=== PATIENT | male | born 1955 | race Caucasian/White ===

== ENCOUNTER 2017-01-19 20:20 | Day surgery (SDC) | payer BC ==
[2017-01-19] MEDS ORDERED: Ondansetron 4 MG/2 ML SDV IVPUSH PRN ×2 (20:37→23:37)
[2017-01-19] MEDS ORDERED: Sodium Chloride 0.9% 1,000 ML IV ONE (20:37)
--- NOTE | 2017-01-19 20:46 | EDM.PDOC ---
ED HPI GENERAL MEDICAL PROBLEM - General Chief Complaint: Abdominal Pain Stated Complaint: LOWER RIGHT ABDOMINAL PAIN Time Seen by Provider: 01/19/17 20:39 Source of Information: Reports: Patient History Limitations: Reports: No Limitations - History of Present Illness INITIAL COMMENTS - FREE TEXT/NARRATIVE: HISTORY AND PHYSICAL: History of present illness: 61-year-old male presents to the emergency room today with complaints of right lower quadrant pain. Reports that right lower quadrant pain started last night progressively gotten worse. Complains of nausea, loose stool, decreased appetite. Denies any previous abdominal surgeries or abdominal conditions/illnesses. Last ate last evening had drank bottled water at approximately 1900. Review of systems: As per history of present illness and below otherwise all systems reviewed and negative. Past medical history: As per history of present illness and as reviewed below otherwise noncontributory. Surgical history: As per history of present illness and as reviewed below otherwise noncontributory. Social history: No reported history of drug or alcohol abuse. Family history: As per history of present illness and as reviewed below otherwise noncontributory. Physical exam: HEENT: Atraumatic, normocephalic, pupils reactive, negative for conjunctival pallor or scleral icterus, mucous membranes moist, throat clear, neck supple, nontender, trachea midline. Lungs: Clear to auscultation, breath sounds equal bilaterally, chest nontender. Heart: S1S2, regular, negative for clicks, rubs, or JVD. Abdomen: Soft, nondistended, localized tenderness to the right lower quadrant. Negative for masses or hepatosplenomegaly. Negative for costovertebral tenderness. Pelvis: Stable nontender. Genitourinary: Deferred. Rectal: Deferred. Extremities: Atraumatic, negative for cords or calf pain. Neurovascular unremarkable. Neuro: Awake, alert, oriented. Cranial nerves II through XII unremarkable. Cerebellum unremarkable. Motor and sensory unremarkable throughout. Exam nonfocal. Dr. Ortega was consulted and will come and evaluate the patient. Diagnostics: CBC, CMP, UA, CT abdomen and pelvis without Therapeutics: IV fluid and Zofran Impression: Abdominal pain Definitive disposition and diagnosis as appropriate pending reevaluation and review of above. Right Lower Abdominal Pain Score (Numeric/FACES): 8 - Related Data Allergies Allergy/AdvReac Type Severity Reaction Status Date / Time Penicillins Allergy Other Verified 01/19/17 20:32 Home Meds: Home Meds . [No Known Home Meds] 01/19/17 [History] Past Medical History - Past Health History Medical/Surgical History: Denies Medical/Surgical History Social & Family History - Tobacco Use Smoking Status *Q: Current Every Day Smoker Years of Tobacco use: 40 Packs/Tins Daily: 2 - Caffeine Use Caffeine Use: Reports: Coffee, Soda, Tea - Recreational Drug Use Recreational Drug Use: No ED ROS GENERAL - Review of Systems Review Of Systems: ROS reveals no pertinent complaints other than HPI. ED EXAM, GI/ABD - Physical Exam Exam: See Below (See dictation) Course - Vital Signs Last Recorded V/S: Last Vital Signs Temp 36.4 C 01/19/17 21:29 Pulse 83 01/19/17 21:29 Resp 18 01/19/17 21:29 BP 144/93 H 01/19/17 21:29 Pulse Ox 96 01/19/17 21:29 - Orders/Labs/Meds Orders: Active Orders 24 hr Category Date Time Status Abdomen Pelvis wo Cont [CT] Stat Exams 01/19/17 20:36 Taken Ondansetron [Zofran] Med 01/19/17 20:37 Active 4 mg IVPUSH ONETIME PRN Medication Orders Ondansetron HCl (Zofran) 4 mg IVPUSH ONETIME PRN PRN Reason: Nausea Labs: Laboratory Tests 01/19/17 01/19/17 01/19/17 Range/Units 20:40 20:49 20:49 WBC 14.58 H (4.0-11.0) K/uL RBC 5.20 (4.50-5.90) M/uL Hgb 16.7 (13.0-17.0) g/dL Hct 48.2 (38.0-50.0) % MCV 92.7 (80.0-98.0) fL MCH 32.1 H (27.0-32.0) pg MCHC 34.6 (31.0-37.0) g/dL RDW Std Deviation 47.9 (28.0-62.0) fl RDW Coeff of Jordon 14 (11.0-15.0) % Plt Count 214 (150-400) K/uL MPV 9.10 (7.40-12.00) fL Neut % (Auto) 77.4 (48.0-80.0) % Lymph % (Auto) 13.5 L (16.0-40.0) % [place] % (Auto) 7.9 (0.0-15.0) % Eos % (Auto) 0.9 (0.0-7.0) % Baso % (Auto) 0.3 (0.0-1.5) % Neut # (Auto) 11.3 H (1.4-5.7) K/uL Lymph # (Auto) 2.0 (0.6-2.4) K/uL [place] # (Auto) 1.2 H (0.0-0.8) K/uL Eos # (Auto) 0.1 (0.0-0.7) K/uL Baso # (Auto) 0.0 (0.0-0.1) K/uL Nucleated RBC % 0.0 /100WBC Nucleated RBCs # 0 K/uL Sodium 137 (136-146) mmol/L Potassium 4.3 (3.5-5.1) mmol/L Chloride 104 (98-110) mmol/L Carbon Dioxide 24 (21-31) mmol/L BUN 15 (6.0-23.0) mg/dL Creatinine 1.1 (0.6-1.5) mg/dL Est Cr Clr Drug Dosing 83.03 mL/min Estimated GFR (MDRD) > 60.0 ml/min Glucose 98 (60-110) mg/dL Calcium 9.6 (8.8-10.8) mg/dL Total Bilirubin 0.9 (0.1-1.5) mg/dL AST 20 (5-40) IU/L ALT 25 (8-54) IU/L Alkaline Phosphatase 68 (40-150) Total Protein 7.8 (6.0-8.0) g/dL Albumin 4.3 (3.4-4.8) g/dL Globulin 3.5 (2.0-3.5) g/dL Albumin/Globulin Ratio 1.2 L (1.3-2.8) Urine Color YELLOW Urine Appearance CLEAR Urine pH 6.0 (5.0-8.0) Ur Specific [place] 1.020 (1.001-1.035) Urine Protein NEGATIVE (NEGATIVE) mg/dL Urine Glucose (UA) NEGATIVE (NEGATIVE) mg/dL Urine Ketones NEGATIVE (NEGATIVE) mg/dL Urine Occult Blood SMALL H (NEGATIVE) Urine Nitrite NEGATIVE (NEGATIVE) Urine Bilirubin NEGATIVE (NEGATIVE) Urine Urobilinogen 1.0 (<2.0) EU/dL Ur Leukocyte Esterase NEGATIVE (NEGATIVE) Urine RBC 0-2 (0-2/HPF) Urine WBC 0-2 (0-5/HPF) Ur Epithelial Cells RARE (NONE-FEW) Urine Bacteria FEW (NEGATIVE) Urine Mucus LIGHT (NONE-MOD) Meds: Medications Generic Name Dose Route Start Last Admin Trade Name Freq PRN Reason Stop Dose Admin Ondansetron HCl 4 mg 01/19/17 20:37 Zofran IVPUSH ONETIME PRN Nausea Discontinued Medications Generic Name Dose Route Start Last Admin Trade Name Freq PRN Reason Stop Dose Admin Sodium Chloride 1,000 mls @ 999 mls/hr 01/19/17 20:37 01/19/17 20:45 Normal Saline IV 01/19/17 21:37 999 mls/hr STAT ONE Administration Departure - Departure Time of Disposition: 21:58 Disposition: Admitted As Inpatient 67 Condition: Good Clinical Impression: Appendicitis - Discharge Information Referrals: PCP,None [Primary Care Provider] - Forms: ED Department Discharge - My Orders Last 24 Hours: My Active Orders 01/19/17 20:36 Abdomen Pelvis wo Cont [CT] Stat 01/19/17 20:37 Ondansetron [Zofran] 4 mg IVPUSH ONETIME PRN - Assessment/Plan Last 24 Hours: My Active Orders 01/19/17 20:36 Abdomen Pelvis wo Cont [CT] Stat 01/19/17 20:37 Ondansetron [Zofran] 4 mg IVPUSH ONETIME PRN
[2017-01-19 21:19] LABS: CHLORIDE,CL 104 mmol/L (98-110); SODIUM,NA 137 mmol/L (136-146)
[2017-01-19] MEDS ORDERED: Levofloxacin/Dextrose 5%-Water 750 MG in Premix Bag 1 BAG IV ONE (22:35)
[2017-01-19] MEDS ORDERED: Lactated Ringers 1,000 ML IV SCH ×2 (22:45→23:45)
--- NOTE | 2017-01-19 23:02 | PCM.PREANE ---
Preanesthetic Assessment - Anesthesia/Transfusion/Family Hx Anesthesia History: Prior Anesthesia Without Reaction Family History of Anesthesia Reaction: No Intubation History: Unknown - Review of Systems General: Fatigue, Malaise Pulmonary: Cough (smoker's cough) Cardiovascular: No Symptoms Gastrointestinal: Nausea Neurological: No Symptoms Other: Reports: None - Physical Assessment NPO Status Date: 01/19/17 NPO Status Time: 18:30 (alcoholic hard cider) O2 Sat by Pulse Oximetry: 96 Respiratory Rate: 18 Vital Signs: Last Vital Signs Temp 98.4 F 01/19/17 22:43 Pulse 79 01/19/17 22:43 Resp 18 01/19/17 22:43 BP 128/95 H 01/19/17 22:43 Pulse Ox 96 01/19/17 22:43 Height: 6 ft 2 in Weight: 205 lb ASA Class: 2E Mental Status: Alert & Oriented x3 Airway Class: Mallampati = 3 Dentition: Reports: Normal Dentition Thyro-Mental Finger Breadths: 3 Mouth Opening Finger Breadths: 3 ROM/Head Extension: Full Lungs: Clear to Auscultation, Normal Respiratory Effort Cardiovascular: Regular Rate, Regular Rhythm - Lab Values: Laboratory Last Values WBC 14.58 K/uL (4.0-11.0) H 01/19/17 20:49 RBC 5.20 M/uL (4.50-5.90) 01/19/17 20:49 Hgb 16.7 g/dL (13.0-17.0) 01/19/17 20:49 Hct 48.2 % (38.0-50.0) 01/19/17 20:49 MCV 92.7 fL (80.0-98.0) 01/19/17 20:49 MCH 32.1 pg (27.0-32.0) H 01/19/17 20:49 MCHC 34.6 g/dL (31.0-37.0) 01/19/17 20:49 RDW Std Deviation 47.9 fl (28.0-62.0) 01/19/17 20:49 RDW Coeff of Jordon 14 % (11.0-15.0) 01/19/17 20:49 Plt Count 214 K/uL (150-400) 01/19/17 20:49 MPV 9.10 fL (7.40-12.00) 01/19/17 20:49 Neut % (Auto) 77.4 % (48.0-80.0) 01/19/17 20:49 Lymph % (Auto) 13.5 % (16.0-40.0) L 01/19/17 20:49 [place] % (Auto) 7.9 % (0.0-15.0) 01/19/17 20:49 Eos % (Auto) 0.9 % (0.0-7.0) 01/19/17 20:49 Baso % (Auto) 0.3 % (0.0-1.5) 01/19/17 20:49 Neut # (Auto) 11.3 K/uL (1.4-5.7) H 01/19/17 20:49 Lymph # (Auto) 2.0 K/uL (0.6-2.4) 01/19/17 20:49 [place] # (Auto) 1.2 K/uL (0.0-0.8) H 01/19/17 20:49 Eos # (Auto) 0.1 K/uL (0.0-0.7) 01/19/17 20:49 Baso # (Auto) 0.0 K/uL (0.0-0.1) 01/19/17 20:49 Nucleated RBC % 0.0 /100WBC 01/19/17 20:49 Nucleated RBCs # 0 K/uL 01/19/17 20:49 Sodium 137 mmol/L (136-146) 01/19/17 20:49 Potassium 4.3 mmol/L (3.5-5.1) 01/19/17 20:49 Chloride 104 mmol/L (98-110) 01/19/17 20:49 Carbon Dioxide 24 mmol/L (21-31) 01/19/17 20:49 BUN 15 mg/dL (6.0-23.0) 01/19/17 20:49 Creatinine 1.1 mg/dL (0.6-1.5) 01/19/17 20:49 Est Cr Clr Drug Dosing 83.03 mL/min 01/19/17 20:49 Estimated GFR (MDRD) > 60.0 ml/min 01/19/17 20:49 Glucose 98 mg/dL (60-110) 01/19/17 20:49 Calcium 9.6 mg/dL (8.8-10.8) 01/19/17 20:49 Total Bilirubin 0.9 mg/dL (0.1-1.5) 01/19/17 20:49 AST 20 IU/L (5-40) 01/19/17 20:49 ALT 25 IU/L (8-54) 01/19/17 20:49 Alkaline Phosphatase 68 (40-150) 01/19/17 20:49 Total Protein 7.8 g/dL (6.0-8.0) 01/19/17 20:49 Albumin 4.3 g/dL (3.4-4.8) 01/19/17 20:49 Globulin 3.5 g/dL (2.0-3.5) 01/19/17 20:49 Albumin/Globulin Ratio 1.2 (1.3-2.8) L 01/19/17 20:49 Urine Color YELLOW 01/19/17 20:40 Urine Appearance CLEAR 01/19/17 20:40 Urine pH 6.0 (5.0-8.0) 01/19/17 20:40 Ur Specific [place] 1.020 (1.001-1.035) 01/19/17 20:40 Urine Protein NEGATIVE mg/dL (NEGATIVE) 01/19/17 20:40 Urine Glucose (UA) NEGATIVE mg/dL (NEGATIVE) 01/19/17 20:40 Urine Ketones NEGATIVE mg/dL (NEGATIVE) 01/19/17 20:40 Urine Occult Blood SMALL (NEGATIVE) H 01/19/17 20:40 Urine Nitrite NEGATIVE (NEGATIVE) 01/19/17 20:40 Urine Bilirubin NEGATIVE (NEGATIVE) 01/19/17 20:40 Urine Urobilinogen 1.0 EU/dL (<2.0) 01/19/17 20:40 Ur Leukocyte Esterase NEGATIVE (NEGATIVE) 01/19/17 20:40 Urine RBC 0-2 (0-2/HPF) 01/19/17 20:40 Urine WBC 0-2 (0-5/HPF) 01/19/17 20:40 Ur Epithelial Cells RARE (NONE-FEW) 01/19/17 20:40 Urine Bacteria FEW (NEGATIVE) 01/19/17 20:40 Urine Mucus LIGHT (NONE-MOD) 01/19/17 20:40 - Allergies Allergies/Adverse Reactions: Allergies Allergy/AdvReac Type Severity Reaction Status Date / Time Penicillins Allergy Other Verified 01/19/17 20:32 - Blood Blood Available: No Product(s) Available: None - Anesthesia Plan Free Text/Narrative:: GETA with RSI - Acknowledgements Anesthesia Type Planned: General Anesthesia Pt an Appropriate Candidate for the Planned Anesthesia: Yes Alternatives and Risks of Anesthesia Discussed w Pt/Guardian: Yes Pt/Guardian Understands and Agrees with Anesthesia Plan: Yes PreAnesthesia Questionnaire - Past Health History Medical/Surgical History: Denies Medical/Surgical History Respiratory History: Reports: Pneumonia, Recurrent (2x's per year "until I stopped taking the flu shot") - Past Surgical History Musculoskeletal Surgical History: Reports: Shoulder Surgery (closed reduction), Other (See Below) ("shattered my elbow as a child") - SUBSTANCE USE Smoking Status *Q: Current Every Day Smoker (2-3 packs/day) Tobacco Use Within Last Twelve Months: Cigarettes Days Per Week of Alcohol Use: 7 Date of Last Drink: 01/19/17 Time of Last Drink: 18:30 Recreational Drug Use History: No - HOME MEDS Home Medications: Home Meds . [No Known Home Meds] 01/19/17 [History] - CURRENT (IN HOUSE) MEDS Current Meds: Current Medications Levofloxacin/Dextrose 750 mg/ (Premix) 150 mls @ 100 mls/hr IV ONETIME ONE Stop: 01/20/17 00:04 Last Admin: 01/19/17 22:42 Dose: 100 mls/hr Lactated Ringer's (Ringers, Lactated) 1,000 mls @ 150 mls/hr IV [facility]ED [facility] Last Admin: 01/19/17 22:52 Dose: 150 mls/hr Ondansetron HCl (Zofran) 4 mg IVPUSH ONETIME PRN PRN Reason: Nausea Discontinued Medications Sodium Chloride (Normal Saline) 1,000 mls @ 999 mls/hr IV STAT ONE Stop: 01/19/17 21:37 Last Admin: 01/19/17 20:45 Dose: 999 mls/hr
[2017-01-19] MEDS ORDERED: Bupivacaine 0.25%/EPINEPHrine 1:200,000 10 ML SDV ONE (23:04)
[2017-01-19] MEDS ORDERED: Propofol 200 MG/20 ML SDV ONE (23:10)
[2017-01-19] MEDS ORDERED: Lidocaine 2% 5 ML SDV ONE (23:10)
[2017-01-19] MEDS ORDERED: Ondansetron 4 MG/2 ML SDV ONE (23:10)
[2017-01-19] MEDS ORDERED: Midazolam 1 MG/ML 2 ML SDV ONE (23:10)
[2017-01-19] MEDS ORDERED: HYDROmorphone 2 MG/ML Syringe ONE (23:10)
[2017-01-19] MEDS ORDERED: Rocuronium 10 MG/ML 10 ML Syringe ONE (23:10)
[2017-01-19] MEDS ORDERED: Succinylcholine/Normal Saline 200 MG/10 ML Syringe ONE (23:11)
[2017-01-19] MEDS ORDERED: Acetaminophen/oxyCODONE 325-5 MG Tab PO PRN (23:37)
[2017-01-19] MEDS ORDERED: Morphine 10 MG/ML Syringe IV PRN (23:38)
[2017-01-20] MEDS ORDERED: fentaNYL 100 MCG/2 ML SDV IVPUSH PRN (00:04)
[2017-01-20] MEDS ORDERED: Ketorolac 30 MG/ML SDV ONE (00:09)
[2017-01-20] MEDS ORDERED: Neostigmine Methylsulfate 1 MG/ML 5 ML Syringe ONE (01:18)
--- NOTE | 2017-01-20 01:40 | PCM.OPNOTE ---
- General Post-Op/Procedure Note Date of Surgery/Procedure: 01/20/17 Operative Procedure(s): lap appendectomy w drain placement Findings: appendix already grew w surrounding organ in one pieces; [id number] Pre Op Diagnosis: acute appendicitis Post-Op Diagnosis: chronic and acute appendicitis Anesthesia Technique: General ET Tube Primary Surgeon: Ruiz Ortega Pathology: sent Drain/Tube Comments:: 10 flat lucille Complications: None Condition: Fair
[2017-01-20] MEDS ORDERED: Levofloxacin 500 MG Tab PO SCH ×2 (01:45→12:00)
--- NOTE | 2017-01-20 02:13 | PCM.POSTAN ---
POST ANESTHESIA ASSESSMENT - MENTAL STATUS Mental Status: Alert, Oriented - VITAL SIGNS Pulse Rate: 83 SaO2: 93 Resp Rate: 17 Blood Pressure: 121/82 - RESPIRATORY Respiratory Status: Respiratory Rate WNL, Airway Patent, O2 Saturation Stable, Supplemental Oxygen (per NC ) - CARDIOVASCULAR CV Status: Pulse Rate WNL, Blood Pressure Stable - GASTROINTESTINAL GI Status: No Symptoms - PAIN Pain Score: 2 - POST OP HYDRATION Hydration Status: Adequate & Stable - OBSERVATIONS Free Text/Narrative:: Pt states he has minimal pain and no nausea or vomiting. VSS. Stable for discharge to phase II recovery on Med/Surg.
--- NOTE | 2017-01-20 03:53 | HP ---
DATE OF : 1955 PRIMARY CARE PHYSICIAN: None PCP This is consult from Dr. Silva in the emergency room. CONCERNING QUESTION: Acute appendicitis. HISTORY OF PRESENT ILLNESS: The patient is a 61-year-old gentleman complaining about a 24-hour history of acute onset of right lower quadrant pain. The pain was subsequently getting worse, sought help in the emergency room, got a CAT scan which revealed acute appendicitis. No perforation of abscess. Surgery was then consulted. The patient described the pain on the pain scale is 7/10 in the right lower quadrant and no radiation. Denied prior episode. The patient is nauseated, but no flow up and denied fever or chills. Denied trauma. PAST MEDICAL HISTORY: Significant for heart murmur and usually getting antibiotic before dental procedures. Denied diabetes, AK, CVA, hypertension. SOCIAL HISTORY: The patient is everyday smoker and two drinks every day and more over the weekend. FAMILY HISTORY: Noncontributory. REVIEW OF SYSTEMS: Same as history of present illness. PHYSICAL EXAMINATION: GENERAL: A very pleasant, nice, young gentleman, in no acute distress. HEENT: Normocephalic, atraumatic. Sclerae anicteric. LUNGS: Clear to auscultation. HEART: Regular rate and rhythm. ABDOMEN: Soft, nondistended. No pulsating tender midline abdominal structure. Adequate exquisite tenderness on the right lower quadrant. No rebound tenderness and no surgical scar. No hernia. LABORATORY DATA: White count is 15 and CAT scan, acute appendicitis. IMPRESSION: Examination, imaging study, and laboratory workup consistent with acute appendicitis. Admit for surgical intervention. We will proceed with laparoscopic versus open appendectomy. Risks and benefits discussed with the patient including bleeding, infection, and damage to nearby organs, and also postop course. The patient concurred to proceed with plan and will put patient on IV Levaquin as the patient is allergic to PCN and consent for surgery. As always, thank you for the kind referral. JO / AUSTEN /[id number]
--- NOTE | 2017-01-20 06:19 | OR ---
SURGEON: Ruiz Ortega MD DATE OF PROCEDURE: 01/20/2017 PREOPERATIVE DIAGNOSIS: Acute appendicitis. POSTOPERATIVE DIAGNOSIS: Acute and chronic appendicitis. COMPLICATIONS: None. FINDING: The appendix already grow together with surrounding organs in one piece. There is no boundary. No separation. Cannot be peeled off. Suggest the patient has chronic appendicitis and perforated appendix and now grow together in one piece. Gross peritoneal fluid is purulent. A 10 flat [place] drain was placed. PROCEDURE IN DETAIL: The patient was taken to the operating room and placed in the supine position. Following induction of general endotracheal anesthesia, the patient's abdomen was prepped and draped in the sterile fashion. A time-out has been called. The patient was identified. The procedure was identified. The antibiotics were identified. The procedure then proceeded. The abdomen was prepped and draped in a standard fashion. After assessment of appropriate [place], a 12 millimeter trocar was inserted supraumbilically using Optiview and pneumoperitoneum was then achieved. This was followed with placement of 5 millimeter port in the right upper quadrant and another 5 millimeter port infraumbilically. The camera was inserted supraumbilical site and two laparoscopic [place] retractors were then inserted through the other two sites. Following the cecum, the appendix was located. The appendix was then lifted up, and using a GI stapler the appendix was amputated at the base. And using the GI stapler, the mesoappendix was then amputated. The appendix was retrieved by an endoscopic bag and sent for pathologist. This was then followed by re-insertion of the camera to examine the staple line, and hemostasis. The trocars were then removed. The umbilical site was closed with 2-0 Vicryl deep stitch and 4-0 Vicryl and Dermabond; the other 2 5 mm port sites were closed with 4-0 Vicryl and Dermabond. The patient was then awakened, extubated, and transferred to the recovery room in hemodynamically stable condition. Prior to closing, sponge count and instrument count was correct. After the surgery was over, a 10 flat B[place] was drained and came out from the bottom trocar site and anchored to the skin with [address] Ortega was present throughout the whole procedure. As always, thank you for the kind referral. JO / AUSTEN /[id number]
--- NOTE | 2017-01-20 08:08 | PCM48HPAN ---
Post Anesthesia Note - EVALUATION WITHIN 48HRS OF ANESTHETIC Vital Signs in Normal Range: Yes Patient Participated in Evaluation: Yes Respiratory Function Stable: Yes Airway Patent: Yes Cardiovascular Function Stable: Yes Hydration Status Stable: Yes Pain Control Satisfactory: Yes Nausea and Vomiting Control Satisfactory: Yes Mental Status Recovered: Yes - COMMENTS/OBSERVATIONS Free Text/Narrative:: Sitting up in bed. States he is doing well and feels "better than yesterday and the doctor did a good job."
[2017-01-20 12:41] VITALS: BP 126/95
--- NOTE | 2017-01-20 13:46 | CT ---
EXAM DATE: 01/19/17 PATIENT'S AGE: 61 Patient: ANDI YAO Facility: [place], [place] Site . Site : 1955 Study: CT Abdomen/Pelvis [id number]/29/2017 9:28:05 PM Ordering Physician: Doctor Deleon Final Report: INDICATION: Right lower quadrant pain for 2 days. TECHNIQUE: CT abdomen and pelvis without contrast. COMPARISON: None. FINDINGS: Lower chest: Unremarkable. Liver: Unremarkable. Spleen: Unremarkable. Pancreas: Unremarkable. Gallbladder and bile ducts: Unremarkable. Adrenal glands: Unremarkable. Kidneys: Unremarkable. No kidney or ureteral stones and no hydronephrosis. GI tract: Acute inflammatory changes in the right lower quadrant, suspicious for acute appendicitis without evidence of perforation or abscess. An appendicolith suspected at base of the appendix, coronal reformat image 32. Vascular structures: Unremarkable. Lymph nodes: Unremarkable. Miscellaneous: Unremarkable. No free air or significant free fluid. Pelvic Organs: Unremarkable. Bones: Unremarkable for age. Moderate degenerative disc disease at L5-S1. IMPRESSION: 1. Acute appendicitis with moderate inflammatory changes in the right lower abdominal quadrant. No perforation or abscess. Dictated by Caesar Harman MD @ 01/19/2017 10:07:15 PM Dictated by: Caesar Harman MD @ 01/19/2017 22:07:22 (Electronic Signature) Report Signed by Proxy. [facility]ITAL[facility]
== END 2017-01-20 13:21 | disposition home or self-care (01) ==
LOC: MW.ED 20:20 → MW.SDS 22:49 → MW.MS 22:52 → MW.SDS 01-20 13:21
PROVIDERS: ATTEND Surgery
DX: K35.80 Unspecified acute appendicitis (principal); F17.210 Nicotine dependence, cigarettes, uncomplicated; Z87.01 Personal history of pneumonia (recurrent); Z98.890 Other specified postprocedural states
CPT/HCPCS: 36415; 44970; 74176; 80053; 81001; 85025; 88304; 96361; 96365; 99285; A9270; C1776; J1170; J1885; J1956; J2250; J7040; J7120; 00840; 99284; J2405; J2704